=== PATIENT | male | born 2000 | race Caucasian/White ===

== ENCOUNTER 2024-02-08 16:28 | Emergency (ER) | payer SELFPAY ==
[2024-02-08] MEDS: Lidocaine 1% 5 ML VIAL INJECT STA (19:03)
== END 2024-02-08 19:14 | disposition home or self-care (01) ==
LOC: MW.ED 16:28
DX: S61.214A Laceration without foreign body of right ring finger without damage to nail, initial encounter (principal); Z75.8 Other problems related to medical facilities and other health care; F17.210 Nicotine dependence, cigarettes, uncomplicated; W23.0XXA Caught, crushed, jammed, or pinched between moving objects, initial encounter
CPT/HCPCS: 12001; 73140-26-F7; 73140-F7; 99283; J3490

== ENCOUNTER 2024-02-16 15:41 | Emergency (ER) | payer SELFPAY | END 2024-02-16 16:14 | LOC: MW.ED 15:41 | DX: Z48.02 Encounter for removal of sutures (principal) | CPT/HCPCS: 99281 ==

== ENCOUNTER 2024-06-28 16:19 | Emergency (ER) | payer SELFPAY | END 2024-06-28 18:39 | disposition home or self-care (01) | LOC: MW.ED 16:19 | DX: B34.9 Viral infection, unspecified (principal); Z79.899 Other long term (current) drug therapy | CPT/HCPCS: 87428-QW; 99283 ==